=== PATIENT | male | born 1965 | race Caucasian/White ===

== ENCOUNTER 2019-02-05 03:55 | Emergency (ER) | payer OTHER ==
[~2019-02-05] VITALS: Ht 193 cm; Wt 79.0 kg
[2019-02-05 04:00] VITALS: BP 101/70
[2019-02-05] MEDS ORDERED: naproxen 500mg tablet PO ONE (04:45)
== END 2019-02-05 05:10 | disposition home or self-care (01) ==
LOC: ER 03:56
DX: S90.31XA Contusion of right foot, initial encounter (principal); F17.200 Nicotine dependence, unspecified, uncomplicated; W20.8XXA Other cause of strike by thrown, projected or falling object, initial encounter; Y93.89 Activity, other specified; Y92.89 Other specified places as the place of occurrence of the external cause; Y99.8 Other external cause status
CPT/HCPCS: 73630; 99283